=== PATIENT | female | born 1995 | race Caucasian/White ===

== ENCOUNTER 2017-03-03 03:06 | Emergency (ER) | payer BC ==
[2017-03-03 04:37] LABS: HEMOGLOBIN 12.3 gm/dl (12.3-15.3); RED BLOOD COUNT 4.19 M/UL (4.00-5.10); WHITE BLOOD COUNT 5.7 K/UL (4.5-11.0)
[2017-03-03 04:55] LABS: BUN/CREATININE RATIO 17 (0-10)
== END 2017-03-03 12:15 ==
LOC: ER1 03:06
PROVIDERS: Family Medicine
DX: R55 Syncope and collapse (principal); R00.2 Palpitations; R42 Dizziness and giddiness; R00.0 Tachycardia, unspecified; R07.2 Precordial pain; R06.02 Shortness of breath
CPT/HCPCS: 36415; 70450; 71010; 80053; 81001; 82550; 82553; 82962; 83874; 84439; 84443; 84484; 84703; 85025; 85379; 93005; 96360; 96361; 99285; J7030

== ENCOUNTER 2017-03-08 20:11 | Observation (INO) | payer BC ==
[~2017-03-08] VITALS: Ht 170.2 cm; Wt 60.3 kg
[2017-03-08 20:54] LABS: HEMOGLOBIN 12.9 gm/dl (12.3-15.3); RED BLOOD COUNT 4.35 M/UL (4.00-5.10); WHITE BLOOD COUNT 6.4 K/UL (4.5-11.0)
[2017-03-08 21:14] LABS: BUN/CREATININE RATIO 16 (0-10)
[2017-03-09] MEDS ORDERED: DOXYCYCLINE HY100 M2 PO (04:31)
[2017-03-09] MEDS ORDERED: SPRINTEC 28 DA1 EACH PO (04:31)
[2017-03-09] MEDS ORDERED: MIDODRINE HCL10 MG PO (04:32)
[2017-03-09] MEDS ORDERED: ZOLOFT25 MG PO (19:10)
== END 2017-03-09 19:30 | disposition home or self-care (01) ==
LOC: ER1 20:11 → ZEROF 03-09 03:22 → MED SURG 4 03-09 04:18
PROVIDERS: Emergency Medicine; ADMIT Family Medicine
DX: I95.1 Orthostatic hypotension (principal); F41.9 Anxiety disorder, unspecified; F41.0 Panic disorder [episodic paroxysmal anxiety]; E87.6 Hypokalemia; Z82.49 Family history of ischemic heart disease and other diseases of the circulatory system; Z90.49 Acquired absence of other specified parts of digestive tract; Z98.890 Other specified postprocedural states
CPT/HCPCS: ECHO; 36415; 71020; 80053; 80307; 81001; 83690; 84132; 84703; 85025; 87086; 93005; 93306; 96361; 96374; 99285; G0378; J1200; J7030; J7050; Q0162; Q0163